=== PATIENT | female | born 1965 | race Caucasian/White ===

== ENCOUNTER 2018-11-04 05:17 | Day surgery (SDC) | payer OTHER ==
[2018-10-28 17:08] LABS: BASOPHILS % (AUTO) 0.5 % (0-1); EOSINOPHILS % (AUTO) 0 % (0-6); LYMPHOCYTES # (AUTO) 1.9 X10'3 (1.1-4.8); LYMPHOCYTES % (AUTO) 22.8 % (21-51); MEAN CORPUSCULAR HEMOGLOBIN 33.5 PG (27.0-31.0); MEAN CORPUSCULAR HGB CONC 35.3 g/dL (33.0-36.5); MEAN CORPUSCULAR VOLUME 94.7 FL (78-98); MEAN PLATELET VOLUME 7.5 FL (7.4-10.4); MONOCYTES # (AUTO) 0.5 X10'3 (0-0.9); NEUTROPHILS % (AUTO) 70.7 % (42-75); PRE OP HEMATOCRIT 42.4 % (35.0-45.0); PRE OP PLATELET COUNT 260 X10'3 (140-440); RED BLOOD COUNT 4.48 X10'6 (4.20-5.60); RED CELL DISTRIBUTION WIDTH 13.4 % (11.5-14.5)
[2018-10-28 17:19] LABS: ALBUMIN 3.8 G/DL (3.4-5.0); ALBUMIN/GLOBULIN RATIO 1.2 (1.1-1.5); ALKALINE PHOSPHATASE 82 IU/L (46-116); BLOOD UREA NITROGEN 12 MG/DL (7-18); BUN/CREATININE RATIO 19.4 (6.6-38.0); CALCIUM 9.2 MG/DL (8.5-10.1); CREATININE 0.62 MG/DL (0.40-0.90); PRE OP ALT 21 U/L (30-65); PRE OP AST 13 U/L (10-37); PRE OP BILIRUB, TOTAL 0.8 MG/DL (0.0-1.0); PRE OP GLUCOSE 83 MG/DL (70-104); PRE OP POTASSIUM 3.4 MMOL/L (3.4-5.1); PRE OP SODIUM 138 MMOL/L (135-145); TOTAL CARBON DIOXIDE 27.4 MMOL/L (24-32); TOTAL PROTEIN 7.1 G/DL (6.4-8.2); eGFR > 90 ML/MIN
[2018-10-28 17:23] LABS: CHLORIDE 103 MMOL/L (99-107); PRE OP ANION GAP 8 (8-16)
[2018-11-04] VITALS (21 sets, daily range): BP systolic 105–138; BP diastolic 46–85
[~2018-11-04] VITALS: Ht 172.7 cm; Wt 113.9 kg
[~2018-11-04 05:17] MED LIST: LOSA50TA3 PO; ringers solution, lacted 1,000 ML IV SCH
[2018-11-04] MEDS ORDERED: cefotetan 2gm/isosm dext IVPB 50 ML IV ONE (05:30)
[2018-11-04] MEDS ORDERED: famotidine 20mg tablet PO ONE (05:30)
[2018-11-04] MEDS ORDERED: LIDOcaine 1% (10mg/ml) 2ml vial ONE (06:12)
[2018-11-04] MEDS ORDERED: clindamycin phosphate 40gm vag cream ONE (06:43)
[2018-11-04] MEDS ORDERED: BUPIVAcaine/PF 2.5mg/ml (0.25%) 10ml vial ONE (06:44)
[2018-11-04] MEDS ORDERED: LIDOcaine 1% 30ml preserv. free vial ONE (06:44)
[2018-11-04] MEDS ORDERED: vasoPRESSIN 20 units/ml inj. ONE (06:44)
[2018-11-04] MEDS ORDERED: morphine 10mg/ml inj. ONE ×2 (06:44→09:24)
[2018-11-04] MEDS ORDERED: ceFAZolin 1000mg inj ONE (06:44)
[2018-11-04] MEDS ORDERED: fentaNYL /PF 50mcg/ml 5ml ampule ONE (07:24)
[2018-11-04] MEDS ORDERED: midazolam 2 mg/2 ml injection ONE (07:24)
[2018-11-04] MEDS ORDERED: LIDOcaine 2% (20mg/ml) 5ml vial ONE (07:25)
[2018-11-04] MEDS ORDERED: propofol inj 20 ML IV ONE (07:25)
[2018-11-04] MEDS ORDERED: rocuronium 10mg/ml inj IV ONE (07:25)
[2018-11-04] MEDS ORDERED: sevoflurane 250ml liquid IH ONE (07:30)
[2018-11-04] MEDS ORDERED: ondansetron/PF 4mg/2ml inj ONE (08:03)
[2018-11-04] MEDS ORDERED: dexamethasone sod phosphate 4mg/ml inj. ONE (08:03)
[2018-11-04] MEDS ORDERED: fluoroscein sod 10% (100mg/ml) 5ml vial ONE ×2 (08:03→10:03)
[2018-11-04] MEDS ORDERED: ringers solution, lacted 1,000 ML IV SCH (09:01)
[2018-11-04] MEDS ORDERED: ondansetron/PF 4mg/2ml inj IV PRN ×2 (09:05→10:40)
[2018-11-04] MEDS ORDERED: proCHLORperazine 10 MG/2 ml inj IV PRN (09:05)
[2018-11-04] MEDS ORDERED: meperidine/PF 25mg/ml syringe IV PRN ×2 (09:05)
[2018-11-04] MEDS ORDERED: morphine 4 MG/ML inj SYRINge IV PRN ×2 (09:05)
[2018-11-04] MEDS: ringers solution, lacted 1,000 ML IV SCH (10:37)
--- NOTE | 2018-11-04 10:38 | NUR ---
Received from OR via , accompanied by Anesthesiologist DR DIAMOND and report given by Anesthesiolgist. AWAKENS TO VOICE. VITALS STABLE. DRESSINGS DI. FAVIOLA PAIN. ABD SOFT. RAMIREZ WITH CLEAR URINE.
[2018-11-04] MEDS ORDERED: diphenhydrAMINE 50 mg/ml inj IV PRN (10:40)
[2018-11-04] MEDS ORDERED: naloxone 0.4 mg/ml inj IV PRN (10:40)
[2018-11-04] MEDS ORDERED: magnesium hydroxide 30ml (MOM) UD suspension PO PRN (10:40)
[2018-11-04] MEDS ORDERED: HYDROcodone/acetaminophen 5mg/325mg tablet PO PRN ×2 (10:40)
[2018-11-04] MEDS ORDERED: CADD PCA waste documentation MC PRN (10:40)
[2018-11-04] MEDS ORDERED: normal saline 500ml IV soln 500 ML IV PRN (10:40)
[2018-11-04] MEDS ORDERED: temazepam 15mg capsule PO PRN (10:40)
[2018-11-04] MEDS ORDERED: HYDROmorphone/NS 1 mg/ml CADD 50 ML IV SCH (11:00)
[2018-11-04] MEDS: meperidine/PF 25mg/ml syringe IV PRN (11:03)
[2018-11-04] MEDS: HYDROmorphone/NS 1 mg/ml CADD 50 ML IV SCH ×6 (11:29→23:00)
--- NOTE | 2018-11-04 11:46 | NUR ---
Patient in room . I have received report from Cali KEANE and had the opportunity to ask questions and assume patient care.
--- NOTE | 2018-11-04 11:48 | NUR ---
Report called to receiving nurse. Transferred via BED Belongings . Special Issues communicated to receiving nurse.AWAKE AND ORIENTED. VITALS STABLE. DRESSINGS DI. STATES PAIN IMPROVING. TO SURGICAL RM 344B AT THIS TIME.
--- NOTE | 2018-11-04 12:00 | NUR ---
Patient on the unit.
[2018-11-04] MEDS: simethicone 80mg chew tab PO SCH ×2 (12:21→19:51)
[2018-11-04] MEDS: ketorolac trometh. 30mg/ml inj. IV PRN (12:23)
--- NOTE | 2018-11-04 17:58 | NUR ---
Patient feeling sick, no Vomit. Zofran given
--- NOTE | 2018-11-04 18:16 | NUR ---
Problems reprioritized. Patient report given, questions answered & plan of care reviewed with Petrona KEANE .
--- NOTE | 2018-11-04 23:28 | NUR ---
Patient in room [facility]. I have received report from LAKHWINDER Gill and had the opportunity to ask questions and assume patient care. Addendum: 11/04/18 at 2330 by Petrona Anderson RN Amended: Links added.
[2018-11-05 00:06] VITALS: BP 108/58
[2018-11-05] MEDS: HYDROmorphone/NS 1 mg/ml CADD 50 ML IV SCH ×4 (01:00→07:00)
[2018-11-05] MEDS: ringers solution, lacted 1,000 ML IV SCH ×3 (02:00→09:25)
[2018-11-05 04:56] LABS: BASOPHILS # (AUTO) 0.1 X10'3 (0-0.2); BASOPHILS % (AUTO) 0.5 % (0-1); EOSINOPHILS % (AUTO) 0 % (0-6); HEMATOCRIT 35.7 % (35.0-45.0); HEMOGLOBIN 12.2 g/dl (12.0-16.0); LYMPHOCYTES # (AUTO) 1.3 X10'3 (1.1-4.8); LYMPHOCYTES % (AUTO) 10.4 % (21-51); MEAN CORPUSCULAR HEMOGLOBIN 32.8 PG (27.0-31.0); MEAN CORPUSCULAR HGB CONC 34.2 g/dL (33.0-36.5); MEAN CORPUSCULAR VOLUME 95.9 FL (78-98); MEAN PLATELET VOLUME 7.9 FL (7.4-10.4); MONOCYTES # (AUTO) 1.1 X10'3 (0-0.9); MONOCYTES % (AUTO) 8.4 % (2-12); NEUTROPHILS # (AUTO) 10.1 X10'3 (1.8-7.7); NEUTROPHILS % (AUTO) 80.7 % (42-75); PLATELET COUNT 230 X10'3 (140-440); RED BLOOD COUNT 3.73 X10'6 (4.20-5.60); RED CELL DISTRIBUTION WIDTH 13.1 % (11.5-14.5); WHITE BLOOD COUNT 12.5 X10'3 (4.5-11.0)
--- NOTE | 2018-11-05 06:06 | NUR ---
Problems reprioritized. Patient report given, questions answered & plan of care reviewed with LAKHWINDER Gill. Addendum: 11/05/18 at 0607 by Petrona Anderson RN Amended: Links added.
--- NOTE | 2018-11-05 06:10 | NUR ---
Patient in room [facility]. I have received report from Petrona KEANE and had the opportunity to ask questions and assume patient care.
[2018-11-05] MEDS: meperidine/PF 25mg/ml syringe IV PRN ×2 (07:04→07:06)
[2018-11-05 07:16] VITALS: BP 126/56
[2018-11-05] MEDS ORDERED: losartan 50mg tablet PO SCH (08:00)
[2018-11-05] MEDS: ketorolac trometh. 30mg/ml inj. IV PRN ×2 (08:07→14:29)
[2018-11-05] MEDS: simethicone 80mg chew tab PO SCH ×2 (08:07→12:42)
[2018-11-05] MEDS ORDERED: docusate sod 100mg capsule PO SCH ×2 (08:30→20:00)
--- NOTE | 2018-11-05 09:00 | NUR ---
Patient refused MOM medication, states she doesn't want to have an accident on the way home.
--- NOTE | 2018-11-05 11:45 | NUR ---
Patient unable to completely empty bladder after trying to void for several hours. Student nurse placed 16-slovak nobles catheter using sterile technique with me at bedside. Patient tolerated well.
--- NOTE | 2018-11-05 15:25 | NUR ---
Patient A&Ox4, anxious to go home. IV Dcd. All belongings packed up and ready to go. in room and will accompany patient home. VSS. Leg bag provided and education completed. Patient will be traveling and whats large bag to stay in tact. All medications have been educated on. Patient acknowledges teaching. Patient has tolerated meals and medications today. Pain has been controled with oral PO medication. Patient has ambulated throughout the day and tolerated well, steady on her feet.
== END 2018-11-05 15:46 | disposition home or self-care (01) ==
LOC: PAS 05:17 → SUR 3N 10:41 → PAS 11-05 15:46
PROVIDERS: ATTEND Specialist
DX: N81.4 Uterovaginal prolapse, unspecified (principal); N39.3 Stress incontinence (female) (male); N73.6 Female pelvic peritoneal adhesions (postinfective); G47.30 Sleep apnea, unspecified; Z83.3 Family history of diabetes mellitus; Z72.89 Other problems related to lifestyle; D64.9 Anemia, unspecified; M19.90 Unspecified osteoarthritis, unspecified site; G43.909 Migraine, unspecified, not intractable, without status migrainosus; E66.9 Obesity, unspecified; Z85.51 Personal history of malignant neoplasm of bladder; Z96.653 Presence of artificial knee joint, bilateral; Z98.890 Other specified postprocedural states; Z88.8 Allergy status to other drugs, medicaments and biological substances
CPT/HCPCS: 36415; 57240; 57283; 57288; 58552; 80053; 82948; 85025; 85610; 85730; 86885; 86900; 86901; 87070; 93005; A6255; C1771; J0690; J0780; J1100; J1170; J1885; J2001; J2175; J2250; J2270; J2405; J2704; J3010; J3490; J7120; A4315; A4355; A6250; A7000; G0378; J7030